=== PATIENT | female | born 1940 | race Caucasian/White ===

== ENCOUNTER → 2024-09-09 12:18 | Outpatient (REF) | payer MEDICARE, SELFPAY ==
[2024-09-09 12:58] LABS: ALT (SGPT) 17 U/L (0-35); AST (SGOT) 29 U/L (14-36); Albumin 3.5 g/dl (3.5-5.0); Alkaline Phosphatase 53 U/L (38-126); Blood Urea Nitrogen 22 mg/dl (7-17); Calcium 9.3 mg/dl (8.4-10.2); Carbon Dioxide 27 mmol/L (22-30); Chloride 110 mmol/L (98-107); Glucose 85 mg/dl (70-99); HDL Cholesterol 52 mg/dl; LDL Cholesterol, Calculated 58 mg/dl; Magnesium 2.1 mg/dl (1.6-2.3); Potassium 4.5 mmol/L (3.5-5.1); Sodium 141 mmol/L (135-145); Total Protein 6.3 g/dl (6.3-8.2); Very Low Density Lipoprotein 17 mg/dl (0-30); eGFR 45.19
[2024-09-09 13:13] LABS: Vitamin D, 25-OH*** 77.8 ng/mL (30-80)
[2024-09-09 13:26] LABS: TSH 2.44 uIU/ml (0.47-4.68)
[2024-09-09 13:35] LABS: Hematocrit 34.5 % (37.0-47.0); Hemoglobin 11.3 g/dL (12.0-16.0); Mean Corp Hgb Conc. 32.8 g/dL (33.0-37.0); Mean Corpuscular Volume 99.1 fL (81.0-99.0); Nucleated Red Blood Cells % 0 %; Platelet Count 118 10^3/uL (130-400); Red Cell Dist. Width 14.4 % (11.5-14.5)
== END ==
LOC: OLABWPC 12:18
PROVIDERS: ATTENDING PHYSICIAN Family Medicine
DX: E67.3 Hypervitaminosis D (principal); R79.89 Other specified abnormal findings of blood chemistry; E78.5 Hyperlipidemia, unspecified; R94.6 Abnormal results of thyroid function studies; R73.09 Other abnormal glucose; Z13.220 Encounter for screening for lipoid disorders; Z13.0 Encounter for screening for diseases of the blood and blood-forming organs and certain disorders involving the immune mechanism
CPT/HCPCS: 36415; 80053; 80061; 82306; 83735; 84439; 84443; 85025

== ENCOUNTER 2025-02-27 13:56 | Emergency (ER) | payer MEDICARE, SELFPAY ==
[2025-02-27 14:02] VITALS: BP 159/80
[2025-02-27] MEDS: MOTRIN 600 MG PO (15:01)
--- NOTE | 2025-02-27 16:42 | ED.MUSCINJ ---
HPI-Injury
General
Chief Complaint: Musculo-Skeletal Complaint
Source: patient
Exam Limitations: none
Time Seen by Provider: 02/27/25 16:07
Nursing documentation reviewed up to this point in time: agreed with
History of Present Illness-Injury
Is this injury a work related problem?: No
Is pt an associate of [facility]/[place]?: No
Initial Injury comments:
Patient to the emergency department for evaluation of left lower back pain. She reports pain started approximately 6 months ago but was mild, controlled with ibuprofen. States since [place]ana the pain is increased. She denies any fever/chills,
recent illness. She denies any nausea, vomiting, diarrhea. She denies any abdominal pain. Pain does not radiate. She denies any weakness in extremities. She denies any bowel or bladder issues. She was brought to the emergency department by her
son for evaluation.
Past History
Past History
ED Past Medical History: Hypercholesterolemia, Psychiatric (Early dementia) and Other (Glaucoma, psoriasis)
ED Past Surgical History: Orthopedic
Social History
Tobacco: Non-smoker
Living: with family
Review of Systems
Review of Systems
Allergies reviewed?: Yes
All Other Systems: ROS reviewed and negative except as documented in HPI and ROS
Constitutional: Reports no symptoms
EENT: Reports no symptoms
Respiratory: Reports no symptoms
Cardiac: Reports no symptoms
ABD/GI: Reports no symptoms
: Reports no symptoms
Musculoskeletal: Reports back pain (Left low back pain)
Skin: Reports no symptoms
Neurological: Reports no symptoms
Psychiatric: Reports no symptoms
Musculoskeletal Injury Exam
Musculoskeletal Injury Exam
Left Lower Back:
Pain with Movement?: Moderate
Tender to palpation?: None
Soft tissue swelling?: None
External deformity and angulation?: None
Joint effusion?: None
Contusion?: None
Hematoma-local bleeding into tissue?: None
Strain- Sprain- Tear (Connective tissue injury)?: Moderate
Crepitus with movement?: No
Joint instability?: No
Malalignment/deformity?: No
Range of motion: Full
Distal skin color and temperature: normal-warm & good color
Capillary Refill: normal
Normal distal neurovascular exam?: Yes
Peripheral Pulses: posterior tibial (left): 3+ and dorsalis pedis (left): 3+
Phy Exam
General Physical Exam
General Presentation: well appearing and no apparent distress
General age: appears stated age
General Skin: warm and dry
General Habitus: normal
General Mental: alert
Gastrointestinal Exam
Gastrointestinal Exam: non tender and soft
Reflexes
Reflexes: +3: Left patellar and +3: Right patellar
Musculoskeletal Exam
Musculoskeletal Exam: full ROM, neuro vasc intact and other (Pain to left lower back and left buttocks. Pain does not radiate. Pain is worse with movement. Patient is able to ambulate however ambulation increases pain.)
Skin Exam
Skin Exam: normal color, warm/dry and no rash
Psychiatric Exam
Psychiatric Exam: normal mood/affect
Injury Course
Orders/Labs/Results
Orders:
Orders
02/27/25 14:03
Lumbar Spine Complete, 4 View [CR Lumbar Spine Comp Min 4 Vw*] Urgent
Comment:
Reason For Exam: pain
02/27/25 14:57
Ibuprofen [Motrin] 600 mg .ROUTE .STK-MED ONE
02/27/25 15:00
Ibuprofen [Motrin] 600 mg PO NOW STA
02/27/25 16:35
Lidocaine [Lidocaine 4% Patch] 1 patch TOPICAL NOW STA
Apply Lidocaine patch(s) to:: left low bAck
02/27/25 16:38
Prednisone [Deltasone] 40 mg PO NOW STA
*Radiology
Radiology exam reviewed: radiology read reviewed
*Pulse Oximetry
SaO2: 98
Oxygen Mode of Delivery: Room air
Patient hypoxic: no
*Critical Care Note
Total Time (30-74mins, 75-104mins- exclusive of procedures): Not Applicable
Update Note
Update Note:
Patient to the emergency department for evaluation of left lower back pain. Pain is with with movement. Pain is located to the left lateral lower back and left buttock. There is no radiation of pain. There is no weakness in extremities. There
is no bowel or bladder symptoms. There is no saddle paresthesia. No concern for cauda equina. She is able to ambulate safely without assistance. X-ray reviewed, no evidence of compression fracture, malalignment. Lidocaine patch was placed at
site of pain. Prescription given to continue daily. Will place on a prednisone taper. She was given a short prescription for narcotic pain medication to be used only for breakthrough pain. Patient resides at [facility].
Discharge instructions and prescriptions were given to patient's son who will take them with him back to [place]. Patient somewhat instructions on signs and symptoms to return to the emergency department they are agreeable to this plan.
ED Attending Note
-
Portions of this chart may have been created with voice recognition software.� Occasional wrong word or��sound alike� substitutions may have occurred due to the inherent limitations of voice recognition software.
Discharge Plan
Departure
Patient Disposition: Home (Routine Discharge)
Date of Disposition: 02/27/25
Time of Disposition: 16:37
Patient with high blood pressure during this ER visit?: No
Condition: Good
Covid-19: Not Applicable
Discharge Problem:
Low back pain
Instructions: Low back pain - ED (DC), Cold therapy for pain, Ibuprofen
Prescriptions:
New
lidocaine 4 % adhesive patch,medicated
1 patch topical DAILY PRN (Reason: Pain) Qty: 10 0RF
hydrocodone-acetaminophen 5-325 mg tablet
1 tab PO Q6H PRN (Reason: Pain) Qty: 8 0RF
Rx Instructions:
No alcohol while taking narcotic pain medication.
prednisone 10 mg Tablet
See Rx Instructions .ROUTE .COMPLEX Qty: 30 0RF
Rx Instructions:
Take By Mouth:
40 mg daily x3 days, 30 mg daily x3 days,
20 mg daily x3 days, 10 mg daily x3 days.
No Action
latanoprost 1 DROP drops
1 drp OPHTHALMIC HS
pravastatin 40 MG tablet
40 mg PO HS
Patient Comments:
TAKE 1 TABLET DAILY
alendronate 70 MG tablet
70 mg PO MO
escitalopram oxalate 10 MG tablet
5 mg PO DAILY
latanoprost 1 DROP drops
0 drp ophthalmic (eye) HS 0RF
acetaminophen 325 MG tablet
650 mg PO Q4HPRN PRN (Reason: mild pain/temp) 0RF
docusate sodium 100 MG capsule
100 mg PO BID 0RF
timolol maleate 1 DROP drops
0 drp ophthalmic (eye) BID 0RF
oxybutynin chloride [Ditropan XL] 5 MG tablet extended release 24hr
5 mg PO BIDPRN PRN (Reason: urgency, frequency) Qty: 20 0RF
Activity Restrictions/Additional Instructions:
Follow-up with your family doctor. Continue ibuprofen 400 to 600 mg every 6-8 hours as needed for pain. Applied lidocaine patch daily. You are given a prescription for narcotic pain medication to be used for pain that is not improving with
ibuprofen.. No alcohol while taking pain medication. Return to the emergency department for fever/chills, nausea, vomiting, diarrhea, abdominal pain, worsening pain to back, any urinary symptoms, weakness in extremities, or any further concerns.
Interventions
Interventions:
*General Assessment Last Done: 02/27/25 13:58
*Neglect/Abuse Screening Last Done: 02/27/25 13:58
*ED COVID-19 Vaccine History Last Done: 02/27/25 13:58
*ED Influenza Vaccine History Last Done: 02/27/25 13:58
*Risk Screen - Suicide (C-SSRS) Last Done: 02/27/25 13:58
Discharge Date and Time
Print Language: MACEDONIAN
[2025-02-27 17:23] VITALS: BP 171/89
[2025-02-27] MEDS: DELTASONE 40 MG PO (17:26)
[2025-02-27] MEDS: LIDOCAINE 4% PATCH 1 PATCH TOPICAL (17:27)
== END 2025-02-27 17:42 | disposition home or self-care (01) ==
LOC: EMR 13:56
PROVIDERS: EMERGENCY PHYSICIAN Emergency Medicine; FAMILY PHYSICIAN Family Medicine
DX: M54.50 Low back pain, unspecified (principal); E78.00 Pure hypercholesterolemia, unspecified; F03.90 Unspecified dementia, unspecified severity, without behavioral disturbance, psychotic disturbance, mood disturbance, and anxiety; H40.9 Unspecified glaucoma; L40.9 Psoriasis, unspecified
CPT/HCPCS: 99283; 72110